=== PATIENT | male | born 1955 | race Caucasian/White ===

== ENCOUNTER 2020-08-18 21:43 | Inpatient (IN) ==
[2020-08-18 22:30] LABS: Basophils % 0.2 % (0.0-0.8); Hematocrit 45.2 VOL% (42.0-52.0); Hemoglobin 15.3 GM/DL (14.0-18.0); Immature Granulocytes % 0.7 %; Immature Granulocytes Absolute 0.12 #; Lymphocytes # 1.1 10*3/uL (1.4-4.0); Lymphocytes % 6.2 % (21.2-54.2); Mean Corpuscular HGB Conc 33.8 GM/DL (32-36); Mean Corpuscular Volume 94.6 FL (87-102); Mean Platelet Volume 11.1 FL (9.6-12.0); Monocytes % 5.5 % (1.7-12.7); Neutrophils % 87.4 % (38.7-73.9); Platelet Count 232 T/CUMM (130-400); Red Blood Count 4.78 MC/CUMM (3.8-5.5); Red Cell Distribution Width 13.3 % (9.3-17.3); White Blood Count 16.8 T/CUMM (4-12)
[2020-08-18 22:39] LABS: Alanine Aminotransferase 21 U/L (16-61); Albumin 4.3 G/DL (3.4-5.0); Alkaline Phosphatase 64 U/L (45-117); Aspartate Amino Transferase 26 U/L (0-37); Blood Urea Nitrogen 44 MG/DL (7-18); Calcium 10.4 MG/DL (8.5-10.1); Carbon Dioxide 19 MMOL/L (21-32); Estimated Glom Filtration Rate 21 ML/MIN; Glucose 421 MG/DL (74-106); Osmolality,Calculated 324.1 MOS/KG (273-304); Potassium 3.6 MMOL/L (3.5-5.1); Sodium 149 MMOL/L (136-145); Total Protein 7.8 G/DL (6.4-8.2)
[2020-08-18 23:04] LABS: Bilirubin,Urine Negative (Negative); Blood, Urine Large mg/dL (Negative); Glucose,Urine (UA) >=500 mg/dL (Negative); Hyaline Casts,Urine 19 /LPF (0-3); Ketones,Urine 20 mg/dL (Negative); Mucus,Urine Occasional /LPF (Occasional); Nitrite,Urine Negative (Negative); Protein,Urine 30 MG/DL; RBC,Urine 1 /HPF (0-4); Red Blood Cell Casts,Urine 1 /LPF (<1); Urine Appearance CLEAR (Clear); Urine Color Yellow (Yellow); Urine Specific Gravity 1.025 (1.001-1.035); Urine Urobilinogen < 2.0 EU/DL (0.2-1.0); WBC,Urine <1 /HPF (0-6)
[2020-08-18 23:05] LABS: Barbiturates Screen,Urine Negative (Negative); Benzodiazepines Screen,Urine Negative (Negative); Cannabinoid Screen,Urine Negative (Negative); Opiate Screen,Urine Negative (Negative); Phencyclidine Screen,Urine Negative (Negative)
[2020-08-18] MEDS ORDERED: SODIUM CHLORIDE 0.9% 1,000 ML IV STA (23:16)
[2020-08-18] MEDS ORDERED: ASPIRIN EC 325 MG TABLET PO STA (23:16)
[2020-08-18] MEDS ORDERED: ENOXAPARIN 30 MG/0.3 ML SYRINGE SUBCUT STA (23:16)
[2020-08-18] MEDS ORDERED: INSULIN REGULAR 100 UNIT/ML IV STA (23:28)
[2020-08-19] MEDS ORDERED: ENOXAPARIN 100 MG/ML SYRINGE SUBCUT ONE (00:25)
[2020-08-19] MEDS ORDERED: DOCUSATE SODIUM 100 MG CAPSULE PO PRN (01:41)
[2020-08-19] MEDS ORDERED: hydrALAZINE 20 MG/1 ML VIAL IV PRN (01:41)
[2020-08-19] MEDS ORDERED: ACETAMINOPHEN 325 MG TABLET PO PRN (01:41)
[2020-08-19] MEDS ORDERED: ONDANSETRON 4 MG/2 ML VIAL IV PRN (01:41)
[2020-08-19] MEDS ORDERED: GLUCAGON 1 MG VIAL IM PRN (01:41)
[2020-08-19] MEDS ORDERED: MORPHINE 4 MG/1 ML VIAL IV PRN (01:41)
[2020-08-19] MEDS ORDERED: DEXTROSE 50% 25 GM/50 ML VIAL IV PRN (01:41)
[2020-08-19] MEDS ORDERED: LORazepam 2 MG/1 ML VIAL IV PRN (02:24)
[2020-08-19 03:10] LABS: Basophils % 0.2 % (0.0-0.8); Hematocrit 44.3 VOL% (42.0-52.0); Hemoglobin 14.8 GM/DL (14.0-18.0); Immature Granulocytes % 0.5 %; Lymphocytes # 2.2 10*3/uL (1.4-4.0); Lymphocytes % 11.3 % (21.2-54.2); Mean Corpuscular HGB Conc 33.4 GM/DL (32-36); Mean Corpuscular Volume 95.3 FL (87-102); Mean Platelet Volume 10.5 FL (9.6-12.0); Monocytes % 8.1 % (1.7-12.7); Neutrophils % 79.9 % (38.7-73.9); Platelet Count 203 T/CUMM (130-400); Red Blood Count 4.65 MC/CUMM (3.8-5.5); Red Cell Distribution Width 13.4 % (9.3-17.3)
[2020-08-19 03:40] LABS: Osmolality,Calculated 309.1 MOS/KG (273-304); Potassium 3.6 MMOL/L (3.5-5.1); Risk Ratio 5.29; Thyroid Stimulating Hormone 0.254 uIU/ml (0.358-3.74); VLDL CHOLESTEROL 27.2 MG/DL
[2020-08-19] MEDS: SODIUM CHLORIDE 0.9% 1,000 ML IV SCH ×2 (04:30→20:43)
[2020-08-19] MEDS: ASPIRIN CHEW 81 MG TABLET PO SCH (09:02)
[2020-08-19] MEDS: INSULIN LISPRO 100 UNIT/ML SUBCUT SCH ×4 (09:02→20:40)
[2020-08-19] MEDS: INSULIN NPH 100 UNIT/ML SUBCUT SCH ×2 (09:04→20:40)
[2020-08-19] MEDS: SODIUM CHLOR 0.45% KCL 20 MEQ 20 MEQ/1,000 ML BAG IV SCH (18:46)
[2020-08-19] MEDS ORDERED: NORTRIPTYLINE 25 MG CAPSULE PO SCH (21:00)
[2020-08-19] MEDS ORDERED: SIMVASTATIN 20 MG TABLET PO SCH (21:00)
[2020-08-19] MEDS ORDERED: VENLAFAXINE XR 75 MG CAPSULE PO SCH (21:00)
[2020-08-19] MEDS ORDERED: ENOXAPARIN 80 MG/0.8 ML SYRINGE SUBCUT SCH (23:00)
[2020-08-20] MEDS: SODIUM CHLOR 0.45% KCL 20 MEQ 20 MEQ/1,000 ML BAG IV SCH ×2 (02:20→09:05)
[2020-08-20 06:10] LABS: Basophils # 0.1 10*3/uL (0.0-0.2); Basophils % 0.4 % (0.0-0.8); Eosinophils # 0.1 10*3/uL (0.0-0.87); Eosinophils % 0.5 % (0.00-10.9); Hematocrit 38.4 VOL% (42.0-52.0); Hemoglobin 12.9 GM/DL (14.0-18.0); Immature Granulocytes % 0.4 %; Immature Granulocytes Absolute 0.05 #; Lymphocytes # 2.3 10*3/uL (1.4-4.0); Lymphocytes % 19.4 % (21.2-54.2); Mean Corpuscular HGB Conc 33.6 GM/DL (32-36); Mean Corpuscular Volume 95.5 FL (87-102); Mean Platelet Volume 10.9 FL (9.6-12.0); Monocytes % 6.2 % (1.7-12.7); Neutrophils % 73.1 % (38.7-73.9); Platelet Count 135 T/CUMM (130-400); Red Blood Count 4.02 MC/CUMM (3.8-5.5); Red Cell Distribution Width 13.2 % (9.3-17.3); White Blood Count 12.1 T/CUMM (4-12)
[2020-08-20 06:32] LABS: Microcytosis 1+
[2020-08-20 06:33] LABS: Platelet Estimate Adequate
[2020-08-20 06:41] LABS: Calcium 8.7 MG/DL (8.5-10.1); Osmolality,Calculated 287.1 MOS/KG (273-304); Potassium 3.4 MMOL/L (3.5-5.1)
[2020-08-20] MEDS: INSULIN LISPRO 100 UNIT/ML SUBCUT SCH ×3 (08:44→15:35)
[2020-08-20] MEDS ORDERED: POTASSIUM CHLORIDE 20 MEQ TABLET PO ONE (09:00)
[2020-08-20] MEDS: ASPIRIN CHEW 81 MG TABLET PO SCH (09:09)
[2020-08-20] MEDS: INSULIN NPH 100 UNIT/ML SUBCUT SCH (09:09)
[2020-08-20 12:34] VITALS: BP 106/63
== END 2020-08-20 16:00 | DRG 71 ==
LOC: N.ED 21:43 → SUATTDRO 08-19 01:26 → N.EDINP 08-19 01:26 → N.TELES 08-19 02:49
PROVIDERS: ADMIT Phlebology; ATTEND Internal Medicine